=== PATIENT | male | born 1980 | race Caucasian/White ===

== ENCOUNTER 2023-08-01 21:47 | Outpatient (CLI) | payer OTHER, SELFPAY | END 2023-08-01 21:48 | disposition home or self-care (01) | PROVIDERS: Visit Provider Family Medicine | DX: F29 Unspecified psychosis not due to a substance or known physiological condition (principal) | CPT/HCPCS: A0425; A0427 ==

== ENCOUNTER 2023-08-01 22:14 | Emergency (ER) | payer OTHER, SELFPAY ==
[2023-08-01] VITALS (19 sets, daily range): BP systolic 48–157; BP diastolic 37–118; PULSE 105–180; RESP 16–40; TEMP 38.7; O2SAT 84–97
--- NOTE | 2023-08-01 22:42 | CT_ITS ---
Patient: PORFIRIO RICHARDSON Facility:?[facility] Patient ID:?[id number] Site Patient ID:?[id number] Site :?1980 Study:?CT-Spine Cervical W/O-08/01/2023 11:40:52 PM Ordering Physician:SAGE Final Report: INDICATION: Head injury, altered mental status. COMPARISON: None. TECHNIQUE: CT of the cervical spine without IV contrast. Coronal and sagittal reconstructions. FINDINGS: No acute fracture or traumatic malalignment of the cervical spine. Normal vertebral body alignment. Reversal of the normal cervical lordosis. Spondylotic changes including endplate spurring, facet arthropathy, and disc space narrowing. No significant spinal canal stenosis. No prevertebral soft tissue swelling. Visualized intracranial contents are unremarkable. The thyroid gland is normal in appearance. The mastoid air cells are clear. The included lung apices are clear. IMPRESSION: 1. No acute fracture or traumatic malalignment of the cervical spine. 2. Spondylotic changes of the cervical spine with reversal of the normal cervical lordosis. Please note that all CT scans at this facility use dose modulation, iterative reconstruction, and/or weight-based dosing when appropriate to reduce radiation dose to as low as reasonably achievable. Dictated by Tierney Dawn MD @ 08/02/2023 12:07:56 AM Signed by:?Tierney Dawn MD @08/02/2023 12:07:56 AM (Electronic Signature)
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
--- NOTE | 2023-08-01 22:42 | CT_ITS ---
Patient: PORFIRIO RICHARDSON Facility:?[facility] Patient ID:?[id number] Site Patient ID:?[id number] Site :?1980 Study:?CT-Head W/O-08/01/2023 11:35:54 PM Ordering Physician:SAGE Final Report: INDICATION: Facial and head trauma. COMPARISON: None. TECHNIQUE: CT of the head without IV contrast. Coronal and sagittal reconstructions. FINDINGS: No intracranial hemorrhage, mass effect, or evidence of acute infarct. No midline shift. No abnormal extra-axial fluid collections. Normal caliber ventricular system. Orbits and extraocular muscles are symmetric. There is opacification of the visualized left maxillary sinus. The mastoid air cells are clear. Mild soft tissue swelling overlying the nose and forehead. No acute fracture identified. IMPRESSION: 1. No acute intracranial findings. 2. Mild soft tissue swelling overlying the nose and forehead. 3. Opacification of the visualized left maxillary sinus. Please note that all CT scans at this facility use dose modulation, iterative reconstruction, and/or weight-based dosing when appropriate to reduce radiation dose to as low as reasonably achievable. Dictated by Tierney Dawn MD @ 08/01/2023 11:56:15 PM Signed by:?Tierney Dawn MD @08/01/2023 11:56:15 PM (Electronic Signature)
[2023-08-01] MEDS: LORazepam 2 MG/ML inj IM (22:45)
[2023-08-01] MEDS: 0.9 % SODIUM CHLORIDE 1000 ml 1,000 ML IV (22:46)
[2023-08-01 22:56] LABS: HCO3 VBG 11 mmol/L (21-28); PCO2 VBG 33 mmHG (40-50); PO2 VBG 58.3 mmHG (25-47)
[2023-08-01 22:57] LABS: pH VBG 7.122 (7.32-7.43)
[2023-08-01] MEDS: LORazepam 2 MG/ML inj IVP (22:57)
[2023-08-01 23:04] LABS: Basophils Absolute Auto 0.03 K/uL (0.00-0.30); Basophils Percent Auto 0.4 % (0.0-3.0); Eosinophils Absolute Auto 0.09 K/uL (0.00-0.50); Eosinophils Percent Auto 1.1 % (0.0-7.0); Hematocrit 40.8 % (37.0-53.0); Hemoglobin* 13.3 gm/dL (13.5-17.5); Immature Granulocytes Abs Auto 0.22 K/uL (0.00-0.30); Immature Granulocytes Pct Auto 2.8 %; Lymphocytes Absolute Auto 2.54 K/uL (0.90-2.90); Mean Corpuscular HGB Conc 33 gm/dL (32-36); Mean Corpuscular Hemoglobin 32 pg (26-34); Mean Corpuscular Volume 97 fL (80-100); Neutrophils Absolute Auto 4.11 K/uL (1.7-7.0); Neutrophils Percent Auto 51.7 % (42.0-72.0); Platelet Count* 91 K/uL (140-440); RDW Coefficient of Variation % 12.5 % (11.5-15.5); Red Blood Count 4.22 m/uL (4.30-5.90); White Blood Count* 7.94 K/uL (4.50-11.00)
[2023-08-01] MEDS: OLANZapine 5 MG/ML inj 10 MG IM (23:05)
[2023-08-01 23:07] LABS: Appearance Urine Clear (Clear); Bilirubin Urine Negative (Negative); Blood Urine 3+ (Negative); Color Urine Yellow (Yellow); Glucose Urine Negative (Negative); Ketones Urine 1+ (Negative); Leukocyte Esterase Urine Negative (Negative); Nitrite Urine Negative (Negative); Protein Urine 3+ (Negative); Specific Gravity Urine >= 1.030 (1.000-1.030)
[2023-08-01 23:11] LABS: Bacteria Urine Few; RBC Urine 0-2 (0-2); Squamous Epithelial Cell Urine Few (None-Few)
[2023-08-01 23:12] LABS: Fine Granular Casts Urine Few
[2023-08-01 23:13] LABS: Amphetamine Screen Urine Negative (Negative); Barbiturate Screen Urine Negative (Negative); Benzodiazepines Screen Urine Negative (Negative); Cannabinoid Screen Urine POSITIVE (Negative); Cocaine Screen Urine Negative (Negative); Methadone Screen Urine Negative (Negative); Methamphetamines Screen Urine Negative (Negative); Opiate Screen Urine Negative (Negative); Oxycodone Screen Urine Negative (Negative); Phencyclidine Screen Urine Negative (Negative); Tricyclic Antidepressant Urine Negative (Negative)
[2023-08-01 23:15] LABS: Slide Review Reflex No
[2023-08-01 23:17] LABS: Albumin* 5.8 g/dL (3.3-5.0); Chloride* 102 mmol/L (96-114); Sodium* 137 mmol/L (135-149)
[2023-08-01 23:18] LABS: Potassium* 4.4 mmol/L (3.6-5.1)
[2023-08-01 23:19] LABS: Creatinine* 1.3 mg/dL (0.5-1.5); Estimated Glomerular Filt Rate 69 ml/min
[2023-08-01 23:20] LABS: Alkaline Phosphatase* 74 U/L (40-150); Anion Gap 26 mEq/L (7-15); Aspartate Amino Transferase* 188 U/L (12-35); Bilirubin Direct* 0.3 mg/dL (0.0-0.5); Bilirubin Total* 1.5 mg/dL (0.1-1.5); Blood Urea Nitrogen* 34 mg/dL (5-24); Glucose* 160 mg/dL (60-115); Total Protein* 8.8 g/dL (6.0-8.3)
[2023-08-01 23:21] LABS: Magnesium* 3.3 mg/dL (1.5-2.6)
[2023-08-01 23:23] LABS: C Reactive Protein* 0.6 mg/dL (0.5-1.0)
[2023-08-01 23:25] LABS: Acetaminophen* < 10.0 ug/mL (10.0-30.0); Ethanol* < 0.01 % (0.01-0.03); Salicylate* < 1.0 mg/dL (1.0-10)
[2023-08-01 23:26] LABS: Carbon Dioxide* 9 mmol/L (20-32)
[2023-08-01 23:56] LABS: Troponin, Point-of-Care* 0.01 ng/ml (0.01-0.04)
[2023-08-02] VITALS (52 sets, daily range): BP systolic 112–196; BP diastolic 63–158; PULSE 85–154; RESP 13–34; TEMP 37.7–38.2; O2SAT 88–97
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
[2023-08-02] MEDS: LORazepam 2 MG/ML inj IVP (00:42)
[2023-08-02 01:02] LABS: HCO3 VBG 18 mmol/L (21-28); PCO2 VBG 35 mmHG (40-50); PO2 VBG 42.3 mmHG (25-47); pH VBG 7.314 (7.32-7.43)
[2023-08-02] MEDS: KETAMINE HCL 100 MG/ML inj 75 MG IVPB ×2 (01:12→02:02)
[2023-08-02] MEDS: LACTATED RINGERS 1000 ML 1,000 ML 500 ML IV (02:02)
[2023-08-02] MEDS: PIPERACILLIN/TAZOBACTAM 3.375 GM in 0.9 % SODIUM CHLORIDE Mini-bag 100 ML IVPB (02:09)
[2023-08-02] MEDS: cefTRIAXone 2 GM in 0.9 % SODIUM CHLORIDE Mini-bag 100 ML IVPB (02:14)
[2023-08-02] MEDS: 0.9 % SODIUM CHLORIDE 1000 ml 1,000 ML 125 ML IV (02:41)
[2023-08-02] MEDS: LORazepam 2 MG/ML inj 4 MG IVP (03:36)
[2023-08-02 04:05] LABS: Creatine Kinase* 6066 U/L (54-186)
[2023-08-02 05:13] LABS: Lactate* 2.7 mmol/L (0.5-1.9)
[2023-08-02 05:29] LABS: Troponin I* 0.02 ng/mL (0.01-0.04)
[2023-08-02 05:33] LABS: Alanine Aminotransferase* 128 U/L (4-50); NT Pro B Type NatriureticPept* 44 pg/mL
== END 2023-08-02 03:59 | disposition short-term general hospital (02) ==
LOC: ED 22:48
PROVIDERS: Emergency Provider Family Medicine
DX: R41.82 Altered mental status, unspecified (principal); S09.90XA Unspecified injury of head, initial encounter; F12.90 Cannabis use, unspecified, uncomplicated; W22.8XXA Striking against or struck by other objects, initial encounter; T40.722A Poisoning by synthetic cannabinoids, intentional self-harm, initial encounter
CPT/HCPCS: 36415; 70450; 70486; 72125; 80048; 80076; 80143; 80179; 80306; 81001; 82077; 82550; 82803; 83605; 83735; 83880; 84484; 85025; 86140; 87040; 87086; 93005; 94761; 96365; 96366; 96372; 96375; 99284; 99285; J0696; J2060; J2543; J3490; J7030; J7120

== ENCOUNTER 2023-08-02 03:32 | Outpatient (CLI) | payer OTHER, SELFPAY | END 2023-08-02 03:33 | disposition home or self-care (01) | LOC: AMB 08-09 07:48 | PROVIDERS: Visit Provider Family Medicine | DX: R41.82 Altered mental status, unspecified (principal); S09.90XS Unspecified injury of head, sequela | CPT/HCPCS: A0425; A0433 ==